=== PATIENT | male | born 1995 | race Caucasian/White ===

== ENCOUNTER 2017-06-14 20:31 | Emergency (ER) | payer OTHER ==
[~2017-06-14] VITALS: Ht 175.3 cm; Wt 63.5 kg
--- NOTE | ~2017-06-14 | CR211 ---
[facility] A Service of [facility] & [facility] RADIOLOGY TEXT RESULTS PATIENT: SAAR LUCAS LOCATION: CFTX : 95 UNIT #: [id number] AGE: [address]: JOSE MENDOZA APRN SEX: M ORDER DR: [id number] [facility] [address] [facility]. [place], [place] [address] [id number] MR#: [id number] Acc #: [id number] NAME: SARA LUCAS : 1995 SEX: M STUDY DATE/TIME: 06/14/2017 22:10 UNIT: [facility] ROOM: STUDY DESCRIPTION: CR Ribs Uni 2 View W PA Ch Rt Attending Physician: Jose Mendoza Aprn Ordering Physician: Jose Mendoza Aprn Primary Care Physician: No Primary Care Physician MEDICAL IMAGING REPORT This report is preliminary unless electronic signature is present EXAM Right ribs 4 views. HISTORY Rib pain after fall yesterday. FINDINGS 4 views of the right ribs demonstrate transverse fractures of the tips of the eighth and ninth ribs with 2 mm separation of fracture fragments. No additional fractures identified. No pneumothorax or pleural effusion. IMPRESSION 1. Fractures of the tips of the eighth and ninth ribs with 2 mm separation of fracture fragments. 2. No pneumothorax or pleural effusion. Dictated by... Musa Mayberry M.D. THIS IS AN ELECTRONICALLY VERIFIED REPORT Musa Mayberry M.D. at 06/15/2017 2:39 PM DFL/gz TD: 06/15/2017 10:46 JOB #: [id number] MEDICAL IMAGING REPORT Page 1 of 1 COPY
[~2017-06-14 20:31] MED LIST: ATIVAN0.5 MG PO; VOLTAREN75 MG PO
== END 2017-06-14 23:56 | disposition home or self-care (01) ==
LOC: CED 20:31 → CFTX 20:31
DX: S22.41XA Multiple fractures of ribs, right side, initial encounter for closed fracture (principal); F17.210 Nicotine dependence, cigarettes, uncomplicated; F41.9 Anxiety disorder, unspecified; W01.0XXA Fall on same level from slipping, tripping and stumbling without subsequent striking against object, initial encounter; Y92.009 Unspecified place in unspecified non-institutional (private) residence as the place of occurrence of the external cause
CPT/HCPCS: 71101; 94010; 99285